=== PATIENT | male | born 1985 | race Caucasian/White ===

== ENCOUNTER 2018-09-04 11:34 | Inpatient (IN) | payer SELFPAY ==
[2018-09-04] MEDS ORDERED: methylPREDNISolone Sod Succ/PF 125 MG/2 ML VIAL ONE (13:30)
[2018-09-04] MEDS ORDERED: diphenhydrAMINE 50 MG/ML VIAL ONE ×2 (13:30→13:51)
[2018-09-04] MEDS ORDERED: PROPOFOL 200 MG/20 ML VIAL ONE (13:51)
[2018-09-04] MEDS ORDERED: Ketorolac Tromethamine 30 MG/ML VIAL ONE (13:51)
[2018-09-04] MEDS ORDERED: Ondansetron PF 4 MG/2 ML Vial ONE (13:51)
[2018-09-04] MEDS ORDERED: Ondansetron ODT 4 MG TAB SL PRN (15:02)
[2018-09-04] MEDS ORDERED: Ondansetron PF 4 MG/2 ML Vial IVP PRN ×2 (15:02→16:38)
[2018-09-04] MEDS ORDERED: Acetaminophen 325 MG TAB PO PRN ×2 (15:02→16:38)
[2018-09-04 15:15] VITALS: BMI 30.2
[2018-09-04] MEDS: Sodium Chloride 0.9% 1,000 ML IV SCH (15:25)
[2018-09-04] MEDS ORDERED: Dextrose 50% Abboject 50 ML SYRINGE SLOW IVP PRN (16:38)
[2018-09-04] MEDS ORDERED: Ondansetron ODT 4 MG TAB PO PRN (16:38)
[2018-09-04] MEDS ORDERED: Dextrose 5% in Water 1,000 ML IV PRN (16:38)
[2018-09-04] MEDS ORDERED: Calcium Carbonate 500 MG ChewTAB PO PRN (16:38)
[2018-09-04] MEDS ORDERED: Senokot S 8.6-50 MG TAB PO PRN (16:38)
[2018-09-04] MEDS ORDERED: Vancomycin HCl 1 GM in Premix Bag 1 BAG IVPB SCH (16:45)
[2018-09-04] MEDS ORDERED: metFORMIN 500 MG TAB PO SCH (17:00)
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
[2018-09-04] MEDS: Vancomycin HCl 1.75 GM in Sodium Chloride 0.9% 500 ML IVPB SCH (18:20)
[2018-09-04 20:20] LABS: Glucose 721 mg/dL (70-105)
[2018-09-04] MEDS ORDERED: NPH, Human Insulin Isophane 300 UNIT/3 ML VIAL SC SCH (20:30)
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
[2018-09-04 21:56] LABS: Anion Gap 15 mmol/L (10-20); BUN (Urea Nitrogen) 18 mg/dL (8.9-20.6); Calc. Creatinine Clearance 124 mL/min (70-130); Calcium 10.1 mg/dL (7.8-10.44); Carbon Dioxide 20 mmol/L (22-29); Chloride 100 mmol/L (98-107); Estimated GFR-MDRD 76; Potassium 4.4 mmol/L (3.5-5.1); Sodium 131 mmol/L (136-145)
[2018-09-04 22:02] LABS: Glucose 636 mg/dL (70-105)
[2018-09-04] MEDS ORDERED: Sodium Chloride 0.9% 500 ML IV SCH (22:45)
[2018-09-04] MEDS: Insulin Regular 300 UNITS/3 ML VIAL SC PRN (22:53)
[2018-09-04] MEDS ORDERED: Insulin Glargine 15 UNITS in Pre-Filled Syringe 1 EACH SC SCH (23:00)
[2018-09-05] MEDS: Vancomycin HCl 1.75 GM in Sodium Chloride 0.9% 500 ML IVPB SCH ×2 (02:20→10:04)
[2018-09-05] MEDS: Sodium Chloride 0.9% 1,000 ML IV SCH ×3 (04:30→16:25)
[2018-09-05 07:02] LABS: #Lymphocytes 1.8 thou/uL (1.20-3.40); #Monocytes 0.8 thou/uL (0.11-0.59); %Basophils 0.3 % (0.0-1.0); %Eosinophils 0.1 % (0.0-10.0); %Lymphocytes 13.2 % (21.0-51.0); %Monocytes 5.7 % (0.0-10.0); %Neutrophils 80.8 % (42.0-75.0); Hemoglobin 14.3 g/dL (14.0-18.0); Mean Corpuscular HGB CONC 34.3 g/dL (32.0-36.0); Mean Corpuscular Volume 84.5 fL (78.0-98.0); Mean Platelet Volume 7.3 fL (7.4-10.4); Platelet Count 317 thou/uL (130-400); RBC Distribution Width 11.7 % (11.5-14.5); Red Blood Cell (RBC) Count 4.96 mill/uL (4.70-6.10); White Blood Cell (WBC) Count 13.6 thou/uL (4.8-10.8)
[2018-09-05 07:03] LABS: Hemoglobin A1c 13.3 % (4.0-6.0)
[2018-09-05 07:17] LABS: Anion Gap 13 mmol/L (10-20); BUN (Urea Nitrogen) 17 mg/dL (8.9-20.6); Calc. Creatinine Clearance 179 mL/min (70-130); Calcium 9.8 mg/dL (7.8-10.44); Carbon Dioxide 22 mmol/L (22-29); Chloride 107 mmol/L (98-107); Estimated GFR-MDRD Greater than 90; Glucose 367 mg/dL (70-105); Sodium 138 mmol/L (136-145)
[2018-09-05] MEDS ORDERED: glipiZIDE 5 MG TAB PO SCH (07:30)
[2018-09-05] MEDS: cefTRIAXone\\ROCEPHIN 2 GM in Sodium Chloride 0.9% 100 ML IVPB SCH (08:54)
[2018-09-05] MEDS ORDERED: Lisinopril 10 MG TAB PO SCH ×2 (09:00→15:45)
[2018-09-05] MEDS: Insulin Glargine 15 UNITS in Pre-Filled Syringe 1 EACH SC SCH ×2 (09:04→21:41)
[2018-09-05] MEDS ORDERED: Midazolam HCl 2 mg/2 ml Vial ONE (12:07)
[2018-09-05] MEDS ORDERED: Fentanyl 100 MCG/2 ML VIAL ONE (12:07)
[2018-09-05] MEDS: HYDROcodone/Acetaminophen 5/325 mg Tablet PO PRN ×2 (15:12→21:27)
[2018-09-05 17:22] LABS: Vancomycin, Trough 31.2 ug/mL
[2018-09-05] MEDS: glipiZIDE 5 MG TAB PO SCH (17:42)
[2018-09-05] MEDS ORDERED: cloNIDine 0.1 MG TAB PO PRN (20:36)
[2018-09-05] MEDS ORDERED: Sodium Chloride 0.9% 1,000 ML IV SCH (20:37)
--- NOTE | 2018-09-05 20:44 | PDOC.PN ---
- Subjective Encounter Start Date: 09/05/18 Encounter Start Time: 15:00 Patient seen and examined for left knee bursitis. s/p I&D. No fever/chills. No new complaints. No overnight events - Objective Resuscitation Status - Order Detail: 09/04/18 16:38 Resuscitation Status Routine Resuscitation Status: FULL: Full Resuscitation MAR Reviewed: Yes Vital Signs & Weight: Vital Signs (12 hours) BP 09/05/18 16:21 157/112 H 09/05/18 08:52 131/83 Weight Weight 204 lb 12.951 oz I&O: 09/04/18 09/05/18 09/06/18 06:59 06:59 06:59 Intake Total 4000 2590 Output Total 0 Balance 4000 2590 Result Diagrams: 09/05/18 06:18 09/05/18 06:18 Additional Labs: Accuchecks 09/05/18 09/05/18 09/05/18 11:43 08:13 04:25 POC Glucose 258 H 275 H 353 H 09/05/18 09/04/18 09/04/18 00:08 20:58 18:19 POC Glucose 486 H 540 H Greater than 550 H* Phys Exam - Physical Examination Constitutional: NAD Respiratory: no wheezing, no rhonchi Cardiovascular: RRR, no rub Gastrointestinal: soft, non-tender, positive bowel sounds Musculoskeletal: no edema Neurological: moves all 4 limbs Dx/Plan - Plan DVT proph w/SCDs IMPRESSION: 1. Left knee Septic bursitis with cellulitis - s/p I&D 2. Diabetes mellitus type 2, uncontrolled. 3. Hypertension. 4. Obesity with a BMI of 30.2. 5. Recent left knee injury. 6. Former smoker. 7. History of drug abuse in the past. 8. Suspected clindamycin allergy. PLAN: Cont Vancomycin Monitor Vancomycin level Add Glipizide Cont Lantus Patient not compliant with diabetic diet and refuses insulin intermittently AM labs Ortho input appreciated. Review of Systems - Review of Systems Respiratory: negative: Cough, Dry, Shortness of Breath, Hemoptysis, SOB with Excertion, Pleuritic Pain, Sputum, Wheezing Cardiovascular: negative: chest pain, palpitations, orthopnea, paroxysmal nocturnal dyspnea, edema, light headedness, other Gastrointestinal: negative: Nausea, Vomiting, Abdominal Pain, Diarrhea, Constipation, Melena, Hematochezia, Other - Medications/Allergies Allergies/Adverse Reactions: Allergies Allergy/AdvReac Type Severity Reaction Status Date / Time clindamycin Allergy Severe Rash Verified 09/04/18 15:25 Medications: Current Medications Acetaminophen (Tylenol) 650 mg PO Q4H PRN PRN Reason: Headache/Fever/Mild Pain (1-3) Hydrocodone Bitart/Acetaminophen ([place] 5/325) 1 tab PO Q4H PRN PRN Reason: Moderate Pain (4-6) Last Admin: 09/05/18 15:12 Dose: 1 tab Calcium Carbonate (Tums) 1,000 mg PO Q4H PRN PRN Reason: Heartburn or Indigestion Clonidine (Catapres) 0.1 mg PO Q4H PRN PRN Reason: Systolic BP > 180 Dextrose/Water (Dextrose 50%) 25 gm SLOW IVP PRN PRN PRN Reason: Hypoglycemia Diphenhydramine HCl (Benadryl) 25 mg PO Q6H PRN PRN Reason: Itching & Insomnia Glipizide (Glucotrol) 5 mg PO BID-AC [facility] Last Admin: 09/05/18 17:42 Dose: 5 mg Glucagon (Glucagon) 1 mg IM PRN PRN PRN Reason: Hypoglycemia Ceftriaxone Sodium 2 gm/ (Sodium Chloride) 100 mls @ 200 mls/hr IVPB DAILY [facility] Last Admin: 09/05/18 08:54 Dose: 100 mls Dextrose/Water (D5w) 1,000 mls @ 0 mls/hr IV .Q0M PRN PRN Reason: Hypoglycemia Insulin Glargine 15 units/ (Miscellaneous Medication) 0.15 mls @ 0 mls/hr SC BID [facility] Last Admin: 09/05/18 09:04 Dose: 0.15 mls Vancomycin HCl 1.75 gm/ Sodium (Chloride) 500 mls @ 250 mls/hr IVPB .pending level [facility] Sodium Chloride (Normal Saline 0.9%) 1,000 mls @ 50 mls/hr IV .Q20H [facility] Insulin Human Regular (Humulin R) 0 units SC .MODERATE SLIDING SC PRN PRN Reason: Moderate Correctional Scale Insulin Human Regular (Humulin R) 0 units SC .BEDTIME SLIDING SC PRN PRN Reason: Bedtime Correctional Scale Last Admin: 09/04/18 22:53 Dose: 10 unit Lisinopril (Zestril) 20 mg PO DAILY [facility] Miscellaneous Medication (Pharmacy To Dose) 1 each IVPB ONE PRN PRN Reason: Pharmacy to dose Stop: 09/14/18 16:39 Ondansetron HCl (Zofran Odt) 4 mg PO Q6H PRN PRN Reason: Nausea/Vomiting Ondansetron HCl (Zofran) 4 mg IVP Q6H PRN PRN Reason: Nausea/Vomiting Senna/Docusate Sodium (Senokot S) 2 tab PO BID PRN PRN Reason: Constipation
[2018-09-06] MEDS ORDERED: Vancomycin HCl 1.75 GM in Sodium Chloride 0.9% 500 ML IVPB SCH (06:00)
[2018-09-06] MEDS: HYDROcodone/Acetaminophen 5/325 mg Tablet PO PRN ×3 (07:02→20:57)
[2018-09-06 07:38] LABS: #Eosinphils 0.2 thou/uL (0.0-0.7); #Lymphocytes 2.6 thou/uL (1.20-3.40); #Monocytes 0.6 thou/uL (0.11-0.59); #Neutrophils 4.5 thou/uL (1.40-6.50); %Basophils 0.6 % (0.0-1.0); %Eosinophils 2.1 % (0.0-10.0); %Lymphocytes 32.6 % (21.0-51.0); %Monocytes 8.1 % (0.0-10.0); %Neutrophils 56.6 % (42.0-75.0); Hemoglobin 13.1 g/dL (14.0-18.0); Mean Corpuscular HGB CONC 32.9 g/dL (32.0-36.0); Mean Corpuscular Hemoglobin 28.1 pg (27.0-31.0); Mean Corpuscular Volume 85.4 fL (78.0-98.0); Mean Platelet Volume 7.2 fL (7.4-10.4); Platelet Count 268 thou/uL (130-400); RBC Distribution Width 11.8 % (11.5-14.5); Red Blood Cell (RBC) Count 4.66 mill/uL (4.70-6.10); White Blood Cell (WBC) Count 7.9 thou/uL (4.8-10.8)
[2018-09-06] MEDS: Lisinopril 20 MG TAB PO SCH (07:48)
[2018-09-06] MEDS: glipiZIDE 5 MG TAB PO SCH ×2 (07:50→15:46)
[2018-09-06] MEDS: cefTRIAXone\\ROCEPHIN 2 GM in Sodium Chloride 0.9% 100 ML IVPB SCH (07:50)
[2018-09-06] MEDS: Insulin Glargine 15 UNITS in Pre-Filled Syringe 1 EACH SC SCH ×2 (07:59→20:59)
[2018-09-06] MEDS: diphenhydrAMINE 25 MG CAP PO PRN ×3 (07:59→21:40)
[2018-09-06 08:10] LABS: Anion Gap 13 mmol/L (10-20); BUN (Urea Nitrogen) 17 mg/dL (8.9-20.6); Calc. Creatinine Clearance 173 mL/min (70-130); Calcium 8.8 mg/dL (7.8-10.44); Carbon Dioxide 21 mmol/L (22-29); Chloride 108 mmol/L (98-107); Estimated GFR-MDRD Greater than 90; Glucose 303 mg/dL (70-105); Potassium 4.2 mmol/L (3.5-5.1); Sodium 138 mmol/L (136-145)
--- NOTE | 2018-09-06 08:42 | OP ---
DATE OF PROCEDURE: 09/05/2018 OPERATION: Irrigation and debridement of left knee. PREOPERATIVE DIAGNOSIS: Knee infection after chainsaw injury to anterior aspect of knee. POSTOPERATIVE DIAGNOSIS: Knee infection after chainsaw injury to anterior aspect of knee. COMPLICATIONS: None. ESTIMATED BLOOD LOSS: Minimal. ANESTHESIA: General. INDICATIONS: Mr. Smith is a 32-year-old male who has developed drainage and dehiscence of a wound related to a chainsaw injury. He was indicated for irrigation and debridement of the left knee with re-closure of the wounds. Risks have been reviewed. He elected to proceed. DESCRIPTION OF PROCEDURE: Mr. Smith was identified in the preoperative holding area. His correct extremity was marked. He was carried to the operating room. He was positioned supine. General anesthesia was induced. A multidisciplinary time-out was performed. The left lower extremity was prepped and draped in sterile fashion. We began the procedure with opening of the patient's wound. We removed all sutures. We then trimmed approximately 5 mm from the skin edges. We got back to a healthy bleeding surface. We then worked more deeply. There was some purulent material which was cultured. We used a curette as well as a knife to excisionally debride the anterior aspect of the suprapatellar region. We then thoroughly irrigated with copious lavage. At this point, we loosely closed with a 3-0 nylon suture. A sterile dressing was applied. The patient was taken to the recovery room in good condition without complication. Job ID: [id number]
[2018-09-06] MEDS: Vancomycin HCl 1.5 GM in Sodium Chloride 0.9% 250 ML 300 ML IVPB SCH ×2 (10:58→21:40)
[2018-09-06] MEDS: Insulin Regular 300 UNITS/3 ML VIAL SC PRN ×3 (12:19→21:02)
--- NOTE | 2018-09-06 23:10 | PDOC.PN ---
- Subjective Encounter Start Date: 09/06/18 Encounter Start Time: 10:30 Patient seen and examined for Septic bursitis. No new complaints. No overnight events - Objective Resuscitation Status - Order Detail: 09/04/18 16:38 Resuscitation Status Routine Resuscitation Status: FULL: Full Resuscitation MAR Reviewed: Yes Vital Signs & Weight: Vital Signs (12 hours) Temp Pulse Resp BP Pulse Ox 09/06/18 19:45 97.9 F 85 18 132/75 94 L Weight Weight 204 lb 12.951 oz I&O: 09/05/18 09/06/18 09/07/18 06:59 06:59 06:59 Intake Total 4000 3590 Output Total 0 Balance 4000 3590 Result Diagrams: 09/06/18 07:14 09/06/18 07:14 Additional Labs: Accuchecks 09/06/18 09/06/18 09/06/18 19:48 15:39 11:21 POC Glucose 296 H 219 H 281 H Phys Exam - Physical Examination Constitutional: NAD Respiratory: no wheezing, no rhonchi Cardiovascular: RRR, no rub Gastrointestinal: soft, non-tender, positive bowel sounds Musculoskeletal: no edema Left knee dressing+ Neurological: moves all 4 limbs Dx/Plan - Plan DVT proph w/SCDs IMPRESSION: 1. Left knee Septic bursitis with cellulitis - s/p I&D - on Vancomycin 2. Diabetes mellitus type 2, uncontrolled - on sliding scale 3. Hypertension. 4. Obesity with a BMI of 30.2. 5. Recent left knee injury. 6. Former smoker. 7. History of drug abuse in the past. 8. Suspected clindamycin allergy. PLAN: Monitor Vancomycin level [facility] Glipizide/Lantus Patient refuses insulin intermittently Ortho following Await ID input Review of Systems - Review of Systems Respiratory: negative: Cough, Dry, Shortness of Breath, Hemoptysis, SOB with Excertion, Pleuritic Pain, Sputum, Wheezing Cardiovascular: negative: chest pain, palpitations, orthopnea, paroxysmal nocturnal dyspnea, edema, light headedness, other - Medications/Allergies Allergies/Adverse Reactions: Allergies Allergy/AdvReac Type Severity Reaction Status Date / Time clindamycin Allergy Severe Rash Verified 09/04/18 15:25 Medications: Current Medications Acetaminophen (Tylenol) 650 mg PO Q4H PRN PRN Reason: Headache/Fever/Mild Pain (1-3) Hydrocodone Bitart/Acetaminophen ([place] 5/325) 1 tab PO Q4H PRN PRN Reason: Moderate Pain (4-6) Last Admin: 09/06/18 20:57 Dose: 1 tab Calcium Carbonate (Tums) 1,000 mg PO Q4H PRN PRN Reason: Heartburn or Indigestion Clonidine (Catapres) 0.1 mg PO Q4H PRN PRN Reason: Systolic BP > 180 Dextrose/Water (Dextrose 50%) 25 gm SLOW IVP PRN PRN PRN Reason: Hypoglycemia Diphenhydramine HCl (Benadryl) 25 mg PO Q6H PRN PRN Reason: Itching & Insomnia Last Admin: 09/06/18 21:40 Dose: 25 mg Glipizide (Glucotrol) 5 mg PO BID-AC [facility] Last Admin: 09/06/18 15:46 Dose: 5 mg Glucagon (Glucagon) 1 mg IM PRN PRN PRN Reason: Hypoglycemia Ceftriaxone Sodium 2 gm/ (Sodium Chloride) 100 mls @ 200 mls/hr IVPB DAILY [facility] Last Admin: 09/06/18 07:50 Dose: 100 mls Dextrose/Water (D5w) 1,000 mls @ 0 mls/hr IV .Q0M PRN PRN Reason: Hypoglycemia Insulin Glargine 15 units/ (Miscellaneous Medication) 0.15 mls @ 0 mls/hr SC BID [facility] Last Admin: 09/06/18 20:59 Dose: 0.15 mls Vancomycin HCl 1.5 gm/ Sodium (Chloride) 300 mls @ 200 mls/hr IVPB 1000,2200 [facility] Last Admin: 09/06/18 21:40 Dose: 300 mls Insulin Human Regular (Humulin R) 0 units SC .MODERATE SLIDING SC PRN PRN Reason: Moderate Correctional Scale Last Admin: 09/06/18 15:43 Dose: 4 unit Insulin Human Regular (Humulin R) 0 units SC .BEDTIME SLIDING SC PRN PRN Reason: Bedtime Correctional Scale Last Admin: 09/06/18 21:02 Dose: 3 unit Lisinopril (Zestril) 20 mg PO DAILY [facility] Last Admin: 09/06/18 07:48 Dose: 20 mg Miscellaneous Medication (Pharmacy To Dose) 1 each IVPB ONE PRN PRN Reason: Pharmacy to dose Stop: 09/14/18 16:39 Ondansetron HCl (Zofran Odt) 4 mg PO Q6H PRN PRN Reason: Nausea/Vomiting Ondansetron HCl (Zofran) 4 mg IVP Q6H PRN PRN Reason: Nausea/Vomiting Senna/Docusate Sodium (Senokot S) 2 tab PO BID PRN PRN Reason: Constipation
[2018-09-07] MEDS: HYDROcodone/Acetaminophen 5/325 mg Tablet PO PRN ×2 (04:53→12:44)
[2018-09-07] MEDS: diphenhydrAMINE 25 MG CAP PO PRN ×3 (04:53→20:03)
[2018-09-07] MEDS: Insulin Regular 300 UNITS/3 ML VIAL SC PRN ×4 (05:43→21:12)
[2018-09-07] MEDS: glipiZIDE 5 MG TAB PO SCH ×2 (09:23→16:43)
[2018-09-07] MEDS: Lisinopril 20 MG TAB PO SCH (09:24)
[2018-09-07] MEDS: Insulin Glargine 15 UNITS in Pre-Filled Syringe 1 EACH SC SCH (09:24)
[2018-09-07] MEDS: cefTRIAXone\\ROCEPHIN 2 GM in Sodium Chloride 0.9% 100 ML IVPB SCH (09:25)
[2018-09-07] MEDS: Vancomycin HCl 1.5 GM in Sodium Chloride 0.9% 250 ML 300 ML IVPB SCH (10:49)
[2018-09-07] MEDS: metFORMIN 500 MG TAB PO SCH (16:43)
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
[2018-09-07 18:45] LABS: Syphilis Antibody Nonreactive (Nonreactive); Syphilis Antibody Index 0.04 S/CO (<1.00 Non-Reactive)
[2018-09-07 18:57] LABS: HBSAg Index 0.22 S/CO (0-0.99); HIV (1/2) Antibody/Antigen Non-Reactive (NonReactive); HIV 1/2 INDEX 0.07 S/CO (<1.00); Hep B Surf Ag Non-Reactive S/CO (NonReactive); Hep C IgG Ab Non-Reactive (NonReactive); Hep C Index 0.11 S/CO (0-0.79)
[2018-09-07] MEDS: Cipro 250 MG TAB PO SCH (20:01)
--- NOTE | 2018-09-07 22:49 | PDOC.PN ---
- Subjective Encounter Start Date: 09/07/18 Encounter Start Time: 10:45 Patient seen and examined for bursisits. No fever/chills. Pain controlled. No new complaints. No overnight events - Objective Resuscitation Status - Order Detail: 09/04/18 16:38 Resuscitation Status Routine Resuscitation Status: FULL: Full Resuscitation MAR Reviewed: Yes Vital Signs & Weight: Vital Signs (12 hours) Temp Pulse Resp BP Pulse Ox 09/07/18 19:59 97.7 F 81 18 136/84 98 09/07/18 15:17 98.2 F 78 17 149/82 H 95 09/07/18 11:00 98.2 F 77 17 147/90 H 95 Weight Weight 204 lb 12.951 oz I&O: 09/06/18 09/07/18 09/08/18 06:59 06:59 06:59 Intake Total 3590 810 1360 Balance 3590 810 1360 Result Diagrams: 09/06/18 07:14 09/06/18 07:14 Additional Labs: Accuchecks 09/07/18 09/07/18 09/07/18 21:11 15:17 11:08 POC Glucose 228 H 183 H 238 H 09/07/18 05:23 POC Glucose 297 H Phys Exam - Physical Examination Constitutional: NAD Respiratory: no wheezing, no rhonchi Cardiovascular: RRR, no rub Gastrointestinal: soft, non-tender, positive bowel sounds Musculoskeletal: no edema Dx/Plan - Plan DVT proph w/SCDs IMPRESSION: 1. Left knee Septic bursitis with cellulitis - s/p I&D - on Vancomycin 2. Diabetes mellitus type 2, uncontrolled - on sliding scale 3. Hypertension. 4. Obesity with a BMI of 30.2. 5. Recent left knee injury. 6. Former smoker. 7. History of drug abuse in the past. 8. Suspected clindamycin allergy. PLAN: Cont current meds as below Cont Glipizide with Lantus Patient still refuses insulin intermittently - Understands the risk DC Atbx per ID Monitor Vancomycin level Review of Systems - Review of Systems Cardiovascular: negative: chest pain, palpitations, orthopnea, paroxysmal nocturnal dyspnea, edema, light headedness, other Gastrointestinal: negative: Nausea, Vomiting, Abdominal Pain, Diarrhea, Constipation, Melena, Hematochezia, Other - Medications/Allergies Allergies/Adverse Reactions: Allergies Allergy/AdvReac Type Severity Reaction Status Date / Time clindamycin Allergy Severe Rash Verified 09/04/18 15:25 Medications: Current Medications Acetaminophen (Tylenol) 650 mg PO Q4H PRN PRN Reason: Headache/Fever/Mild Pain (1-3) Hydrocodone Bitart/Acetaminophen ([place] 5/325) 1 tab PO Q4H PRN PRN Reason: Moderate Pain (4-6) Last Admin: 09/07/18 12:44 Dose: 1 tab Calcium Carbonate (Tums) 1,000 mg PO Q4H PRN PRN Reason: Heartburn or Indigestion Ciprofloxacin (Cipro) 500 mg PO BID@0600,2000 [facility] Last Admin: 09/07/18 20:01 Dose: 500 mg Clonidine (Catapres) 0.1 mg PO Q4H PRN PRN Reason: Systolic BP > 180 Dextrose/Water (Dextrose 50%) 25 gm SLOW IVP PRN PRN PRN Reason: Hypoglycemia Diphenhydramine HCl (Benadryl) 25 mg PO Q6H PRN PRN Reason: Itching & Insomnia Last Admin: 09/07/18 20:03 Dose: 25 mg Glipizide (Glucotrol) 5 mg PO BID-[facility] Last Admin: 09/07/18 16:43 Dose: 5 mg Glucagon (Glucagon) 1 mg IM PRN PRN PRN Reason: Hypoglycemia Dextrose/Water (D5w) 1,000 mls @ 0 mls/hr IV .Q0M PRN PRN Reason: Hypoglycemia Insulin Glargine 20 units/ (Miscellaneous Medication) 0.2 mls @ 0 mls/[facility] [place] Insulin Human Regular (Humulin R) 0 units SC .BEDTIME SLIDING SC PRN PRN Reason: Bedtime Correctional Scale Last Admin: 09/07/18 21:12 Dose: 2 unit Insulin Human Regular (Humulin R) 0 units SC .AGGRESSIVE SLIDING PRN PRN Reason: Aggressive Sliding Scale Last Admin: 09/07/18 16:44 Dose: 3 unit Lisinopril (Zestril) 20 mg PO DAILY [facility] Last Admin: 09/07/18 09:24 Dose: 20 mg Metformin HCl (Glucophage) 500 mg PO BID-[facility] Last Admin: 09/07/18 16:43 Dose: 500 mg Ondansetron HCl (Zofran Odt) 4 mg PO Q6H PRN PRN Reason: Nausea/Vomiting Ondansetron HCl (Zofran) 4 mg IVP Q6H PRN PRN Reason: Nausea/Vomiting Senna/Docusate Sodium (Senokot S) 2 tab PO BID PRN PRN Reason: Constipation
[2018-09-08] MEDS: Cipro 250 MG TAB PO SCH ×2 (05:05→20:20)
[2018-09-08] MEDS: Insulin Regular 300 UNITS/3 ML VIAL SC PRN ×4 (05:07→20:21)
[2018-09-08] MEDS: HYDROcodone/Acetaminophen 5/325 mg Tablet PO PRN ×2 (05:09→16:45)
[2018-09-08] MEDS: diphenhydrAMINE 25 MG CAP PO PRN ×2 (05:09→16:45)
[2018-09-08] MEDS: metFORMIN 500 MG TAB PO SCH ×2 (08:25→16:43)
[2018-09-08] MEDS: glipiZIDE 5 MG TAB PO SCH ×2 (08:25→16:43)
[2018-09-08] MEDS: Lisinopril 20 MG TAB PO SCH (08:25)
[2018-09-08] MEDS: Insulin Glargine 20 UNITS in Pre-Filled Syringe 1 EACH SC SCH (08:26)
--- NOTE | 2018-09-08 22:23 | PDOC.PN ---
- Subjective Encounter Start Date: 09/08/18 Encounter Start Time: 09:30 Patient seen and examined for bursitis. No new complaints. No overnight events - Objective Resuscitation Status - Order Detail: 09/04/18 16:38 Resuscitation Status Routine Resuscitation Status: FULL: Full Resuscitation MAR Reviewed: Yes Vital Signs & Weight: Vital Signs (12 hours) Temp Pulse Resp BP Pulse Ox 09/08/18 20:20 97.9 F 76 17 158/88 H 97 Weight Weight 204 lb 12.951 oz I&O: 09/07/18 09/08/18 09/09/18 06:59 06:59 06:59 Intake Total 810 1959 2019 Balance 810 1959 2019 Result Diagrams: 09/06/18 07:14 09/06/18 07:14 Additional Labs: Accuchecks 09/08/18 09/08/18 09/08/18 19:35 15:27 11:40 POC Glucose 292 H 175 H 165 H 09/08/18 05:08 POC Glucose 203 H Microbiology 09/05/18 13:23 Knee - Wound Bacterial Culture - Preliminary 09/05/18 13:23 Knee - Wound Anaerobic Culture - Preliminary Serratia marcescens Gram Negative Karan 09/04/18 13:34 Knee - Pending Bacterial Culture - Preliminary Serratia marcescens Gram Negative Karan Phys Exam - Physical Examination Constitutional: NAD Respiratory: no wheezing, no rhonchi Cardiovascular: RRR, no rub Gastrointestinal: soft, non-tender, positive bowel sounds Neurological: moves all 4 limbs Dx/Plan - Plan DVT proph w/SCDs IMPRESSION: 1. Left knee Septic bursitis with cellulitis - s/p I&D 2. Diabetes mellitus type 2, uncontrolled - on sliding scale 3. Hypertension. 4. Obesity with a BMI of 30.2. 5. Recent left knee injury. 6. Former smoker. 7. History of drug abuse in the past. 8. Suspected clindamycin allergy. PLAN: Cont PO Cipro per ID Await wound culture report DC later today if culture report available Cont current meds as below Cont Glipizide/Lantus/sliding scale Review of Systems - Review of Systems Respiratory: negative: Cough, Dry, Shortness of Breath, Hemoptysis, SOB with Excertion, Pleuritic Pain, Sputum, Wheezing Cardiovascular: negative: chest pain, palpitations, orthopnea, paroxysmal nocturnal dyspnea, edema, light headedness, other - Medications/Allergies Allergies/Adverse Reactions: Allergies Allergy/AdvReac Type Severity Reaction Status Date / Time clindamycin Allergy Severe Rash Verified 09/04/18 15:25 Medications: Current Medications Acetaminophen (Tylenol) 650 mg PO Q4H PRN PRN Reason: Headache/Fever/Mild Pain (1-3) Hydrocodone Bitart/Acetaminophen (Cayce 5/325) 1 tab PO Q4H PRN PRN Reason: Moderate Pain (4-6) Last Admin: 09/08/18 16:45 Dose: 1 tab Calcium Carbonate (Tums) 1,000 mg PO Q4H PRN PRN Reason: Heartburn or Indigestion Ciprofloxacin (Cipro) 500 mg PO BID@0600,2000 [facility] Last Admin: 09/08/18 20:20 Dose: 500 mg Clonidine (Catapres) 0.1 mg PO Q4H PRN PRN Reason: Systolic BP > 180 Dextrose/Water (Dextrose 50%) 25 gm SLOW IVP PRN PRN PRN Reason: Hypoglycemia Diphenhydramine HCl (Benadryl) 25 mg PO Q6H PRN PRN Reason: Itching & Insomnia Last Admin: 09/08/18 16:45 Dose: 25 mg Glipizide (Glucotrol) 5 mg PO BID-[facility] Last Admin: 09/08/18 16:43 Dose: 5 mg Glucagon (Glucagon) 1 mg IM PRN PRN PRN Reason: Hypoglycemia Dextrose/Water (D5w) 1,000 mls @ 0 mls/hr IV .Q0M PRN PRN Reason: Hypoglycemia Insulin Glargine 20 units/ (Miscellaneous Medication) 0.2 mls @ 0 mls/hr [facility] Last Admin: 09/08/18 08:26 Dose: 0.2 mls Insulin Human Regular (Humulin R) 0 units SC .BEDTIME SLIDING SC PRN PRN Reason: Bedtime Correctional Scale Last Admin: 09/08/18 20:21 Dose: 3 unit Insulin Human Regular (Humulin R) 0 units SC .AGGRESSIVE SLIDING PRN PRN Reason: Aggressive Sliding Scale Last Admin: 09/08/18 16:44 Dose: 3 unit Lisinopril (Zestril) 20 mg PO DAILY [facility] Last Admin: 09/08/18 08:25 Dose: 20 mg Metformin HCl (Glucophage) 500 mg PO BID-[facility] Last Admin: 09/08/18 16:43 Dose: 500 mg Ondansetron HCl (Zofran Odt) 4 mg PO Q6H PRN PRN Reason: Nausea/Vomiting Ondansetron HCl (Zofran) 4 mg IVP Q6H PRN PRN Reason: Nausea/Vomiting Senna/Docusate Sodium (Senokot S) 2 tab PO BID PRN PRN Reason: Constipation
[2018-09-09] MEDS: Cipro 250 MG TAB PO SCH (05:55)
[2018-09-09] MEDS: HYDROcodone/Acetaminophen 5/325 mg Tablet PO PRN (05:58)
[2018-09-09] MEDS: diphenhydrAMINE 25 MG CAP PO PRN (05:58)
[2018-09-09] MEDS: Insulin Regular 300 UNITS/3 ML VIAL SC PRN ×2 (06:00→12:34)
[2018-09-09] MEDS: glipiZIDE 5 MG TAB PO SCH (09:22)
[2018-09-09] MEDS: Insulin Glargine 20 UNITS in Pre-Filled Syringe 1 EACH SC SCH (09:22)
[2018-09-09] MEDS: metFORMIN 500 MG TAB PO SCH (09:22)
[2018-09-09] MEDS: Lisinopril 20 MG TAB PO SCH (09:23)
[2018-09-09 13:53] VITALS: BP 146/85; TEMP 98.2
--- NOTE | 2018-09-09 19:30 | DIS ---
DATE OF ADMISSION: 09/04/2018 DATE OF DISCHARGE: 09/09/2018 DISCHARGE DISPOSITION: Home. FOLLOWUP: 1. Follow up with primary care physician, Dr. Lynn Landeros in 1 week. 2. Follow up with Dr. Yuri Gutierrez in 10 days. ALLERGIES: THE PATIENT IS ALLERGIC TO CLINDAMYCIN. DISCHARGE MEDICATIONS: 1. Ciprofloxacin 500 mg twice a day for next 14 days. 2. Lantus insulin 20 units daily. 3. Lisinopril 20 mg daily. 4. Metformin 500 mg b.i.d. The patient was advised to monitor his blood sugar on a daily basis and to maintain a log. DIAGNOSTIC TESTS: HIV negative. Hepatitis B surface antigen negative. Hepatitis C antibody negative. Syphilis antibody negative. WBC on admission 13.6, at discharge 7.9. Hemoglobin A1c 13.3. The patient was seen and examined on the day of discharge. Denies any new complaints. No chest pain, shortness of breath, palpitations, or fever reported. BRIEF HOSPITAL COURSE: The patient is a 32-year-old male with diabetes mellitus type 2 with recent left knee injury, presented to the emergency room with left knee swelling along with drainage of 1 week duration. His workup was consistent with left knee septic bursitis with cellulitis. He failed outpatient therapy and also had allergic reaction to clindamycin. He was started on IV vancomycin and Zosyn. He underwent irrigation and debridement of the left knee by Dr. Gutierrez on 05 September 2018. His wound culture showed serratia sensitive to ciprofloxacin. He will be discharged home on ciprofloxacin per Infectious Disease recommendation. His wound significantly looks better. FINAL DIAGNOSES: 1. Left knee septic bursitis with cellulitis. The patient failed outpatient therapy. 2. Diabetes mellitus type 2, uncontrolled with hemoglobin A1c 13. 3. Hypertension. 4. Obesity with a BMI of 30.2. 5. Recent left knee injury. 6. Former smoker. 7. History of drug abuse in the past. 8. Clindamycin allergy. PLAN: Plan of care was discussed with the patient in detail. He stated understanding. Job ID: [id number]
--- NOTE | 2018-09-13 07:47 | PQF ---
Luis Smith MALIK MD [id number] CLINICAL DOCUMENTATION CLARIFICATION FORM: POST DISCHARGE Addendum to original discharge summary date: ____ Late entry note date: __ DATE: 09/13/17 ATTN: Dr. Burks, Please exercise your independent, professional judgment in responding to the clarification form. Clinical indicators are provided on the bottom of this form for your review Please check appropriate box(s): Diabetes: With: [ ] Hypoglycemia [ x ] Hyperglycemia [ ] Ketoacidosis [ ] with coma [ ] without coma [ ] Other diagnosis [ ] Unable to determine In addition, please specify: Present on Admission (POA): [ x ] Yes [ ] No [ ] Unable to determine CLINICAL INDICATORS - SIGNS / SYMPTOMS / LABS V8D---32---Nlfuynrcz Summary Diabetes mellitus type 2, uncontrolled--09/04 H&P Glucose--721---09/04 Labs RISK FACTORS Hypertension--09/04 H&P Diabetes mellitus, type 2, uncontrolled currently not on any diabetic medications--09/04 H&P Obesity with a BMI 30.2--09/04 H&P TREATMENTS: Sliding scale and add oral glipizide and metformin---09/04 H&P Glucose monitoring--ordered 09/04 Lantus insulin 20 units daily, Metformin 500 mg bid--discharge medications--- Discharge Summary Thank you, Chelsea Heck, [facility] 09/13/18 7:43 AM (This form is maintained as a part of the permanent medical record) 2014 [employer]. All Rights Reserved Chelsea [email or web address] [phone] [email or web address]
== END 2018-09-09 14:42 | disposition home or self-care (01) | DRG 501 ==
LOC: ERS 11:34 → T4-B 14:41
PROVIDERS: ADMIT Internal Medicine; ATTEND Internal Medicine
PROC: 0MBP0ZZ Excision of Left Knee Bursa and Ligament, Open Approach (ICD-10-PCS; principal; 2018-09-05)
DX: M71.162 Other infective bursitis, left knee (principal); L03.116 Cellulitis of left lower limb; T81.33XA Disruption of traumatic injury wound repair, initial encounter; I10 Essential (primary) hypertension; E11.65 Type 2 diabetes mellitus with hyperglycemia; E66.9 Obesity, unspecified; Z68.30 Body mass index [BMI] 30.0-30.9, adult; L27.0 Generalized skin eruption due to drugs and medicaments taken internally; T36.8X5A Adverse effect of other systemic antibiotics, initial encounter; S81.012D Laceration without foreign body, left knee, subsequent encounter; W29.3XXD Contact with powered garden and outdoor hand tools and machinery, subsequent encounter; F15.11 Other stimulant abuse, in remission; Z79.899 Other long term (current) drug therapy; Z87.891 Personal history of nicotine dependence
CPT/HCPCS: 36415; 36416; 80048; 80202; 83036; 85025; 86780; 86803; 87070; 87077; 87186; 87205; 87340; 87389; 96374; 96375; J0696; J1200; J1815; J1825; J1885; J2250; J2405; J2704; J2930; J3010; J3370; J7050; Q0163